=== PATIENT | male | born 1955 | race Caucasian/White ===

== ENCOUNTER → 2017-07-06 | Outpatient (CLI) | payer OTHER ==
[2017-06-30 09:54] LABS: BLOOD UREA NITROGEN 16 mg/dl (7-18); CREATININE 0.84 mg/dl (0.60-1.40)
[~2017-07-06] MED LIST: OPTIRAY 320 IV PRN
--- NOTE | 2017-07-06 09:55 | DIAGNOSTIC IMAGING REPORT ---
ABD/PELVIS COMBO CLINICAL HISTORY: 61 years-old Male presenting with N40.0 Benign prostatic hyperplasia. TECHNIQUE: Multidetector CT of the abdomen and pelvis was performed before and after the administration of intravenous contrast. IV contrast: 94 mL of Optiray 320. A dose lowering technique was used consistent with the principles of ALARA (as low as reasonably achievable). COMPARISON: 07/16/2011. CT DOSE (mGy.cm): The estimated cumulative dose is 1030.46 mGycm. FINDINGS: Pump Servicer topogram: Unremarkable. Lung bases: Minimal basilar opacities, likely atelectasis. Normal heart size. No pericardial or pleural effusion. Liver: Normal morphology. Density borderline for hepatic steatosis. Well-defined bilobed lesion in the lateral left hepatic lobe consistent with hepatic cyst. Additional punctate hypodensity in the right hepatic lobe likely cyst or hamartoma. Patent hepatic vasculature. Biliary: No intrahepatic or extrahepatic biliary ductal dilatation. Normal gallbladder. Pancreas: Normal. Spleen: Normal. Adrenal glands: Normal. Kidneys and ureters: 7 mm calculus in the proximal to mid right ureter. Moderate right pelvocaliectasis and dilatation of the proximal right ureter, which appears progressed since the prior exam. Even beyond the calculus, the right ureter is mildly dilated. No perinephric fat stranding or diminished perfusion of the kidneys. Multiple prominent left parapelvic cysts. The left ureter is normal. No nephrolithiasis. Circumaortic left renal vein. Bladder: Allowing for underdistention, significant circumferential bladder wall thickening. Pelvic organs: Prostate enlargement likely secondary to benign prostatic hyperplasia. Bowel: Normal appendix. No bowel obstruction. Mild wall thickening of the sigmoid colon may be present though no pericolonic fat stranding is evident. Feces in the distal and terminal ileum likely indicates delayed transit. No bowel obstruction. Peritoneal cavity: No free fluid or intraperitoneal gas. Lymph nodes: No enlarged lymph nodes in the abdomen or pelvis. Vasculature: Aorta and IVC patent and normal in caliber. Abdominal wall: Normal. Musculoskeletal: Normal. IMPRESSION: 1. Circumferential bladder wall thickening likely indicates chronic outlet obstruction secondary to prostatic megaly. Correlate with urinalysis to exclude cystitis. 2. Partially obstructing 7 mm calculus in the proximal to mid right ureter. Increased distention of the right renal collecting system and proximal right ureter raises concern for hydroureteronephrosis despite the absence of diminished perfusion or parenchymal or perinephric edema. 3. The presence of mild right ureteral dilatation distal to the calculus could be secondary to reactive or medication induced smooth muscle relaxation, history of stone passage, or ureteral reflux. 4. Mild sigmoid colonic wall thickening without other signs of inflammation. This may be artifactual due to underdistention. 5. Borderline hepatic steatosis. Electronically signed by: Sukumar Raymond M.D. 07/06/2017 9:53 AM Dictated Date/Time: 07/06/2017 9:32 AM
== END | disposition home or self-care (01) ==
LOC: C.CTS 08:55
PROVIDERS: ATTEND Urology
DX: N40.0 Benign prostatic hyperplasia without lower urinary tract symptoms (principal); R93.41 Abnormal radiologic findings on diagnostic imaging of renal pelvis, ureter, or bladder; N20.1 Calculus of ureter

== ENCOUNTER 2017-08-26 07:07 | Day surgery (SDC) | payer OTHER ==
[2017-08-05 08:48] VITALS: BMI 24.0
--- NOTE | 2017-08-05 09:09 | PAT Medication Instructions ---
Service Date Aug 05, 2017. Current Home Medication List Amphetamine-Dextroamphetamine 5MG (Adderall 5MG), 5 MG PO QD PRN for Anxiety/ Agitation Medication Instructions For Your Scheduled Surgery - Hold the following medications the morning of surgery: Amphetamine-Dextroamphetamine 5MG (Adderall 5MG), 5 MG PO QD PRN for Anxiety/ Agitation If you have any questions please call us at [phone] or [phone] or [phone]
--- NOTE | 2017-08-05 09:50 | DIAGNOSTIC IMAGING REPORT ---
CHEST 2 VIEWS ROUTINE CLINICAL HISTORY: PAT preoperative evaluation COMPARISON STUDY: No previous studies for comparison. FINDINGS: The bones soft tissues and hemidiaphragms are normal. The cardiomediastinal silhouette is normal. The lungs are clear. The pulmonary vasculature is normal. IMPRESSION: Negative chest. The above report was generated using voice recognition software. It may contain grammatical, syntax or spelling errors. Electronically signed by: Carlos George M.D. 08/05/2017 9:49 AM Dictated Date/Time: 08/05/2017 9:49 AM
[2017-08-05 11:18] LABS: BASO % 0.7 %; BASO ABS # 0.04 K/uL (0-0.2); EOS % 3.1 %; EOS ABS # 0.17 K/uL (0-0.5); HEMATOCRIT 44.6 % (42-52); HEMOGLOBIN 15.5 g/dL (14.0-18.0); IG# 0.01 K/uL (0.00-0.02); LYMPH % 30.1 %; LYMPH ABS # 1.63 K/uL (1.2-3.4); MEAN CORPUSCULAR HEMOGLOBIN 30.9 pg (25-34); MEAN CORPUSCULAR HGB CONC 34.8 g/dl (32-36); MEAN PLATELET VOLUME 11.1 fL (7.4-10.4); MONO % 8.7 %; MONO ABS # 0.47 K/uL (0.11-0.59); NEUT % 57.2 %; PLATELET COUNT 167 K/uL (130-400); RED CELL DISTRIBUTION WIDTH CV 13.2 % (11.5-14.5); RED CELL DISTRIBUTION WIDTH SD 42.7 fL (36.4-46.3); WHITE BLOOD COUNT 5.42 K/uL (4.8-10.8)
[2017-08-05 11:47] LABS: CALCIUM 9.4 mg/dl (8.5-10.1); CREATININE 0.87 mg/dl (0.60-1.40); POTASSIUM 4.5 mmol/L (3.5-5.1)
[~2017-08-26] VITALS: Ht 180.3 cm; Wt 79.6 kg
[~2017-08-26 07:07] MED LIST changes: +AMPH1TAB58 PO; +CIPROFLOXACIN / D5W 400 MG IV SCH; +LACTATED RINGER'S 1000ML 1,000 ML IV SCH; -OPTIRAY 320 IV PRN
[2017-08-26 07:46] VITALS: BP 115/81; PULSE 75; TEMP 36.6; O2SAT 98; Ht 180.3 cm; Wt 79.6 kg
[2017-08-26] MEDS ORDERED: ATROPINE SULFATE 0.1 MG/ML 5ML SYR IV PRN (08:45)
[2017-08-26] MEDS ORDERED: ONDANSETRON INJ 2 MG/ML 2 ML VIAL IV PRN (08:45)
[2017-08-26] MEDS ORDERED: FENTANYL CITRATE INJ 50 MCG/1 ML 2 ML VIAL IV PRN (08:45)
[2017-08-26] MEDS ORDERED: KETOROLAC TROMETHAMINE 30 MG/ML VIAL IV. PRN (08:45)
[2017-08-26] MEDS ORDERED: MIDAZOLAM HCL 1 MG/ML 2ML VIAL ONE (08:49)
[2017-08-26] MEDS ORDERED: FENTANYL CITRATE INJ 50 MCG/1 ML 2 ML VIAL ONE (08:49)
--- NOTE | 2017-08-26 09:02 | History & Physical Bridge Note ---
H&P Re-Evaluation Bridge Note: I have examined the patient, reviewed the History & Physical and in the interval since the performance of the History & Physical I have noted the following changes of clinical significance: No changes noted
[2017-08-26] MEDS ORDERED: Cysto-Conray II 17.2% 250ML BOTTLE ONE (09:11)
[2017-08-26] MEDS ORDERED: ONDANSETRON INJ 2 MG/ML 2 ML VIAL ONE (09:47)
[2017-08-26] MEDS ORDERED: PROPOFOL IV EMULSION 10 MG/ML 20 ML VIAL IV ONE (09:47)
[2017-08-26] MEDS ORDERED: DEXAMETHASONE SOD INJ 4 MG/ML VIAL ONE (09:47)
[2017-08-26] MEDS ORDERED: LIDOCAINE HCL 2% 2 ML VIAL (20MG/ML) ONE (09:47)
[2017-08-26] MEDS ORDERED: PHENYLEPHRINE 100MCG/ML 5ML SYR ONE (10:02)
--- NOTE | 2017-08-26 10:28 | [facility] Post Operative Brief Note ---
Immediate Operative Summary Operative Date Aug 26, 2017. Pre-Operative Diagnosis Right hydronephrosis Post-Operative Diagnosis Right hydronephrosis Procedure(s) Performed Cystoscopy, Right Ureteroscopy Surgeon Dr. Jareth Best Development Analyst Surgeon(s) Dr. Smooth Sahu Estimated Blood Loss 0 mL Findings Consistent with Post-Op Diagnosis Specimens No pathology specimens per surgeon Drains None Anesthesia Type General Complication(s) none Disposition Accompanied Pt To Recover: yes Disposition: Recovery Room / PACU
[2017-08-26] MEDS ORDERED: OXYC-57 PO (10:29)
[2017-08-26] MEDS ORDERED: OXYCODONE/ACETAMINOPHEN 5-325 TAB PO PRN (10:30)
--- NOTE | 2017-08-26 10:30 | Discharge Instructions ---
Discharge Instructions Date of Service Aug 26, 2017. Visit Reason for Visit: Right Hydronephrosis Discharge Discharge Diagnosis / Problem: right hydronephrosis Discharge Goals Goal(s): Therapeutic intervention Activity Recommendations Activity Limitations: resume your previous activity (take it easy today) Anesthesia . Post Anesthesia Instructions: If you have had General Anesthesia or IV Sedation: * Do not drive today. * Resume driving when surgeon permits. * Do not make important decisions or sign legal documents today. * Call surgeon for: 1. Temperature elevations greater than 101 degrees F. 2. Uncontrollable pain. 3. Excessive bleeding. 4. Persistent nausea and vomiting. 5. Medication intolerance (nausea, vomiting or rash). * For nausea and vomiting use only clear liquids such as: tea, soda, bouillon until nausea subsides, then gradually increase diet as tolerated. * If you have any concerns or questions, call your surgeon's office. If physician is unavailable and it is an emergency, call 911 or go to the nearest emergency room. . Diet Recommendations Recommended Home Diet: resume previous diet Procedures Procedures Performed: Cystoscopy, Right Ureteroscopy Pending Studies Studies pending at discharge: no Medical Emergencies . Who to Call and When: Medical Emergencies: If at any time you feel your situation is an emergency, please call 911 immediately. . Non-Emergent Contact Non-Emergency issues call your: Urologist Call Non-Emergent contact if: temperature is above 101.5, your pain is not controlled . . "Provider Documentation" section prepared by Jareth Best. . [place] Drug Monitoring Program Search Results: patient reviewed within database
--- NOTE | 2017-08-26 10:50 | DIAGNOSTIC IMAGING REPORT ---
RETROGRADE INCLUDES KUB CLINICAL HISTORY: 61 years-old Male presenting with RT SIDE LITHOTRIPSY AND STENT INSERTION. TECHNIQUE: 4 fluoroscopic spot image(s) obtained as part of an intraoperative procedure. COMPARISON: CT from 07/06/2017. FINDINGS/IMPRESSION: A catheter was introduced into the distal left ureter, which was opacified with contrast. No contrast was noted superior to the mid ureter with abrupt cutoff at the level of L5. This correlates with a site of obstruction secondary to a presumed partially calcified calculus seen on recent CT from June. The guidewire could not be passed proximal to this region. Please see surgical report for further details. Dose area product (mGy.cm^2): 7655. Fluoroscopy time: 151.6. Number of fluoroscopic spot images: 4. Electronically signed by: Sukumar Raymond M.D. 08/26/2017 10:49 AM Dictated Date/Time: 08/26/2017 10:47 AM
--- NOTE | 2017-08-26 10:53 | [facility] Operative Report ---
Operative Report Operative Date Aug 26, 2017. Pre-Operative Diagnosis Right hydronephrosis Post-Operative Diagnosis Right hydronephrosis Procedure(s) Performed Cystoscopy, Right Ureteroscopy Surgeon Dr. Jareth Best Coal Gasification Technician Surgeon(s) Dr. Smooth Sahu Estimated Blood Loss 0 mL Findings Cystoscopic exam revealed normal anterior urethra prostatic fossa was mildly obstructing bladder showed no mucosal abnormalities. Right retrograde showed an abrupt cut off of the diet the mid ureter with postobstructive dilatation. Ureteroscopy was done to the level of the obstruction but there was just a pinpoint. Specimens No pathology specimens per surgeon Drains None Anesthesia Type General Complication(s) none Disposition yes Recovery Room / PACU Indications Patient is a 61-year-old white male who was found to have right-sided hydronephrosis on an ultrasound done for another reason CAT scan confirmed the hydronephrosis and on review he had a CAT scan in 2011 that also showed some hydronephrosis Description of Procedure After the induction of adequate general anesthetic and appropriate timeout patient was placed in the dorsolithotomy position. Lower abdomen and genitalia were prepped with Hibiclens and draped in sterile fashion. Next using a 22 Kyr[place] cystoscope routine cystoscopic exam was performed the above-noted findings. Then using a 4.8 K[place] cone-tip catheter right retrograde pyelogram was performed the dye went up to the level of the obstruction and there may have been a wisp of dye that went past but I was unable to fill out the proximal ureter. I then attempted to pass a 0.038 guidewire up the right ureter under fluoroscopic guidance but it would only go to the level of the obstruction we also tried a Glidewire and a 0.25 wire none of these would go past the obstruction. Next the ureteral access sheath was used to dilate the intramural tunnel and flexible ureteroscopy was done to the level of the obstruction there was possibly a pinpoint opening of visible at this point since we are unable to get anything by the obstruction the procedure was aborted patient's bladder was drained. All needle sponges and instrument counts were correct at the end of the case. The patient tolerated the procedure well and was taken to the recovery room in stable condition. If the patient needs to have this kidney decompressed he will need a nephrostomy tube He is probably going to need a formal segmental ureterectomy and and a stenosis I am not sure whether this is a stricture or whether there is possibly tumor above this obstruction I attest to the content of the Intraoperative Record and any orders documented therein. Any exceptions are noted below.
[2017-08-26 11:10] VITALS: BP 150/91; PULSE 67; TEMP 36.3; O2SAT 98
[2017-08-26 11:40] VITALS: BP 170/90; PULSE 64; TEMP 36.3; O2SAT 96
--- NOTE | 2017-08-26 12:01 | Anesthesiology Progress Note ---
Anesthesia Post Op Note Date & Time Aug 26, 2017 at 12:01 Vital Signs Pain Intensity: 2 Vital Signs Past 12 Hours Date Time Temp Pulse Resp B/P (MAP) Pulse Ox O2 Delivery O2 Flow Rate FiO2 08/26/17 11:40 36.3 64 18 170/90 96 Room Air 08/26/17 11:10 36.3 67 18 150/91 98 Room Air 08/26/17 11:05 36.3 69 16 114/88 99 Room Air 08/26/17 10:55 60 16 137/97 99 Room Air 08/26/17 10:45 67 16 131/90 100 Room Air 08/26/17 10:35 70 16 128/85 100 Oxymask 8 08/26/17 10:25 36 58 16 109/77 100 Oxymask 8 08/26/17 07:46 36.6 75 18 115/81 (92) 98 Room Air Notes Mental Status: alert / awake / arousable, participated in evaluation Pt Amnestic to Procedure: Yes Nausea / Vomiting: adequately controlled Pain: adequately controlled Airway Patency, RR, SpO2: stable & adequate BP & HR: stable & adequate Hydration State: stable & adequate Anesthetic Complications: no major complications apparent
[2017-09-21] MEDS ORDERED: CIPR-255 PO (09:52)
== END 2017-08-26 11:55 | disposition home or self-care (01) ==
LOC: C.ACU 07:07
PROVIDERS: ATTEND Urology
DX: N13.30 Unspecified hydronephrosis (principal); F90.9 Attention-deficit hyperactivity disorder, unspecified type; Z88.1 Allergy status to other antibiotic agents; N40.0 Benign prostatic hyperplasia without lower urinary tract symptoms; Z82.49 Family history of ischemic heart disease and other diseases of the circulatory system

== ENCOUNTER → 2017-09-07 | Outpatient (CLI) | payer OTHER ==
[~2017-09-07] MED LIST changes: -CIPROFLOXACIN / D5W 400 MG IV SCH; -LACTATED RINGER'S 1000ML 1,000 ML IV SCH; +OXYC-57 PO
[2017-09-07 13:20] LABS: BASO % 0.7 %; BASO ABS # 0.05 K/uL (0-0.2); EOS % 1.6 %; EOS ABS # 0.11 K/uL (0-0.5); HEMATOCRIT 45.6 % (42-52); HEMOGLOBIN 15.8 g/dL (14.0-18.0); IG# 0.02 K/uL (0.00-0.02); LYMPH % 26.9 %; MEAN CELL VOLUME 89.8 fL (80-100); MEAN CORPUSCULAR HEMOGLOBIN 31.1 pg (25-34); MEAN CORPUSCULAR HGB CONC 34.6 g/dl (32-36); MEAN PLATELET VOLUME 10.9 fL (7.4-10.4); MONO % 8.2 %; MONO ABS # 0.55 K/uL (0.11-0.59); NEUT % 62.3 %; NEUT ABS # 4.15 K/uL (1.4-6.5); PLATELET COUNT 189 K/uL (130-400); RED CELL DISTRIBUTION WIDTH SD 42.7 fL (36.4-46.3); WHITE BLOOD COUNT 6.68 K/uL (4.8-10.8)
--- NOTE | 2017-09-07 13:23 | DIAGNOSTIC IMAGING REPORT ---
ULTRASOUND KIDNEYS AND BLADDER CLINICAL HISTORY: Hydronephrosis.. COMPARISON STUDY: Abdominal CT dated 07/06/2017. TECHNIQUE: Real-time, grayscale, and color flow sonography of the kidneys and bladder is performed. Images are reviewed in the transverse and longitudinal planes. FINDINGS: Kidneys: The kidneys are normal in size and echotexture. The right kidney measures 12.3 cm in length and the left kidney measures 11.6 cm in length. There is moderate right hydroureteronephrosis and mild left-sided hydronephrosis. No shadowing renal calculi are identified. There is no sonographic evidence of contour deforming renal mass lesion. No perinephric fluid is identified. Bladder: The prostate gland is mildly enlarged and heterogeneous, noting median lobe hypertrophy. The bladder wall appears mildly thickened and trabeculated suggesting chronic outlet obstruction. Bilateral ureteral jets were seen. The post void bladder residual measures 11 cc. Upper abdomen: Survey images of the liver show evidence of hepatomegaly and hepatic steatosis. IMPRESSION: 1. Moderate right and mild left hydronephrosis. This is similar in appearance to the 07/06/2017 examination. 2. Prostatomegaly with evidence of chronic bladder outlet obstruction. Both ureteral jets were identified. 3. Hepatic steatosis. Electronically signed by: Arben Cheney M.D. 09/07/2017 1:21 PM Dictated Date/Time: 09/07/2017 1:18 PM
[2017-09-07 13:40] LABS: ALBUMIN 3.7 gm/dl (3.4-5.0); ALT/SGPT 32 U/L (12-78); AST/SGOT 20 U/L (15-37); BLOOD UREA NITROGEN 17 mg/dl (7-18); CALCIUM 9.1 mg/dl (8.5-10.1); CARBON DIOXIDE 27 mmol/L (21-32); CREATININE 0.91 mg/dl (0.60-1.40); GLUCOSE 92 mg/dl (70-99); POTASSIUM 4.1 mmol/L (3.5-5.1); SODIUM 136 mmol/L (136-145)
[2017-09-07 13:42] LABS: ALKALINE PHOSPHATASE 61 U/L (45-117); TOTAL PROTEIN 7.2 gm/dl (6.4-8.2)
== END | disposition home or self-care (01) ==
LOC: C.ULTRBC 11:45
PROVIDERS: ATTEND Urology
DX: N13.30 Unspecified hydronephrosis (principal)

== ENCOUNTER → 2017-09-07 | Outpatient (CLI) | payer OTHER ==
--- NOTE | 2017-09-07 08:44 | DIAGNOSTIC IMAGING REPORT ---
KUB CLINICAL HISTORY: 61 years-old Male presenting with HYDRONEPHROSIS, interval stone retrieval. TECHNIQUE: Single supine view of the abdomen was obtained. COMPARISON: CT from 07/06/2017. FINDINGS: Moderate stool burden in the right colon. No bowel obstruction. No gross pneumoperitoneum. The previously identified calculus in the mid right ureter is not immediately apparent on this radiograph. This may be consistent with recent stone retrieval. Multiple pelvic phleboliths noted. No additional renal calculus is evident. Osseous structures normal. IMPRESSION: 1. No radiographic evidence of renal or ureteral calculus. Electronically signed by: Sukumar Raymond M.D. 09/07/2017 8:43 AM Dictated Date/Time: 09/07/2017 8:39 AM
== END | disposition home or self-care (01) ==
LOC: C.RAD 08:23
PROVIDERS: ATTEND Urology
DX: N13.30 Unspecified hydronephrosis (principal)

== ENCOUNTER → 2017-10-21 | Outpatient (CLI) | payer OTHER ==
[~2017-10-21] MED LIST changes: +CIPR-255 PO; -OXYC-57 PO
[2017-10-21 12:31] LABS: BLOOD UREA NITROGEN 18 mg/dl (7-18); CREATININE 1.02 mg/dl (0.60-1.40)
== END | disposition home or self-care (01) ==
LOC: C.LAB 10:46
PROVIDERS: ATTEND Urology
DX: N20.1 Calculus of ureter (principal)

== ENCOUNTER → 2017-12-29 | Outpatient (CLI) | payer OTHER ==
[~2017-12-29] MED LIST changes: +OPTIRAY 300 IV PRN
--- NOTE | 2017-12-29 14:25 | DIAGNOSTIC IMAGING REPORT ---
IVP W/OR W/O TOMOGRAMS HISTORY: 62 years-old Male N20.1 Ureteral calculus, righT follow-up study in a patient with history of ureteral calculi and suggested right ureteral stricture COMPARISON: IVP 11/05/2017, renal scan 11/09/2017 TECHNIQUE: IVP with tomograms was obtained utilizing the use of 100 mL Optiray 320 IV contrast. Log Sorting Supervisor AP image was obtained. A total of 17 images were submitted. FINDINGS: Log Sorting Supervisor image demonstrates interval removal of the right-sided ureteral stent. Right renal shadow is partially obscured by bowel gas. No definite renal or ureteral calculi identified. Multiple calcifications of the pelvis suggest phleboliths. There is symmetric uptake of contrast within the kidneys bilaterally. Symmetric excretion into the bilateral collecting systems with delayed excretion through the right ureter. The left renal collecting system, pelvis and ureter appear normal. There is moderate right-sided hydroureteronephrosis with calyceal blunting, similar to mildly improved from comparison study 11/05/2017. There is demonstration of a focal area of abrupt caliber change of the mid right ureter suggesting stricture seen best on images 15 through 17 with dilation of the ureter seen proximally to this region. The overall area of irregular stricturing appears to measure up to approximately 3.5 cm in length at the level of L5. Normal caliber smooth ureter seen distally to this area. Mild post void residual. IMPRESSION: 1. Moderate right-sided hydroureteronephrosis, similar to slightly improved from comparison study 11/05/2017. There is redemonstration of a focal area of irregular ureteral narrowing with abrupt caliber change about the mid right ureter which again suggests benign or malignant stricture. 2. Normal appearance of the left renal collecting system and ureter. 3. No definite renal or ureteral calculi identified. The above report was generated using voice recognition software. It may contain grammatical, syntax or spelling errors. Electronically signed by: Eliseo Levy M.D. 12/29/2017 2:23 PM Dictated Date/Time: 12/29/2017 2:03 PM
== END | disposition home or self-care (01) ==
LOC: C.RAD 12:45
PROVIDERS: ATTEND Urology
DX: N20.1 Calculus of ureter (principal)